=== PATIENT | female | born 1960 | race Caucasian/White ===

== ENCOUNTER → 2019-05-09 | Outpatient (CLI) | payer BC, OTHER ==
--- NOTE | 2019-05-10 07:18 | REP ---
MRI LEFT FOOT WITHOUT CONTRAST: Multiple sequences obtained in the axial, coronal and sagittal planes without the use of intravenous contrast. There is a history of pain and swelling with redness and purple discoloration of the 4th toe. The osseous structures of the 4th toe demonstrate normal marrow signal with no occult fracture or evidence of osteomyelitis. There is ill-defined soft tissue edema in the soft tissues of the 4th toe extending into the adjacent dorsal soft tissues of the distal mid foot. No abscess collection is seen. There is mild marrow edema in the head of the first metatarsal, plantar aspect which is nonspecific and may represent posttraumatic or stress-related changes. There is mild marrow edema in the base of the 3rd and 4th metatarsals likely related to adjacent arthritic change at the tarsometatarsal joints. No other abnormal bone marrow signal is seen. There is mild joint fluid at the tibiotalar joint. Plantar tendon is intact. I do not see significant tenosynovitis of the flexor extensor tendons of the foot. No definite tendon or ligament abnormality is seen in the hind foot. I suspect a 4 mm foreign body in the soft tissues dorsal to the 4th proximal phalanx. IMPRESSION: Diffuse soft tissue edema and possible cellulitis of the soft tissues of the 4th toe without evidence of underlying osteomyelitis of the 4th phalanges. No abscess collection. Mild marrow edema in the head of the first metatarsal, specifically at the plantar aspect may represent post-traumatic or stress related changes. There is mild marrow edema at the base of the 3rd and 4th metatarsals, which is likely related to adjacent arthritic change at the tarsometatarsal joints. I suspect a 4 mm foreign body in the soft tissues dorsal to the 4th proximal phalanx. Electronically Signed by Arturo Deluca MD 05/10/2019 04:34 P
== END ==
LOC: M RAD 17:50
PROVIDERS: ATTEND Physician Assistant
DX: M79.9 Soft tissue disorder, unspecified (principal); M19.072 Primary osteoarthritis, left ankle and foot; R60.0 Localized edema; L81.9 Disorder of pigmentation, unspecified